=== PATIENT | male | born 1980 | race Caucasian/White ===

== ENCOUNTER 2018-02-13 09:37 | Emergency (ER) | payer OTHER ==
[~2018-02-13] VITALS: Ht 162.6 cm; Wt 81.6 kg
[~2018-02-13 09:37] MED LIST: PREVACID30 MG PO
== END 2018-02-13 13:43 | disposition home or self-care (01) ==
LOC: ER 09:37
DX: S90.111A Contusion of right great toe without damage to nail, initial encounter (principal); W22.8XXA Striking against or struck by other objects, initial encounter; Y93.89 Activity, other specified; Y92.098 Other place in other non-institutional residence as the place of occurrence of the external cause; Y99.8 Other external cause status

== ENCOUNTER 2023-11-26 05:10 | Day surgery (SDC) | payer OTHER ==
[2023-11-19 09:38] LABS: HEMATOCRIT 40.3 % (39.0-48.0); HEMOGLOBIN 13.9 g/dL (13-16.00); MEAN CELL VOLUME 86.6 fL (80.0-100.00); MEAN CORPUSCULAR HEMOGLOBIN 29.8 pg (27.00-32.0); MEAN CORPUSCULAR HGB CONC 34.4 g/dl (32.0-36.0); PLATELET COUNT 392 K/uL (150-450); RED BLOOD COUNT 4.66 M/uL (4.00-6.00); RED CELL DISTRIBUTION WIDTH 13.4 % (11.5-14.5)
[2023-11-19 09:38] LABS: PH,URINE 5.5 (5.0-8.0); URINE APPEARANCE Clear; URINE BILIRRUBIN Negative (NEGATIVE); URINE BLOOD Trace; URINE COLOR Yellow; URINE KETONE Trace (NEGATIVE); URINE LEUKOCYTE Negative; URINE NITRATE Negative; URINE PROTEIN Trace (NEGATIVE); URINE UROBILINOGEN 0.2 E.U./dl
[2023-11-19 09:41] LABS: URINE BACTERIA 11.3 uL (0.0-1933); URINE EPITHELIAL CELLS 2.6 uL (0.0-38.8); URINE RBC 10.9 uL (0.0-20.8); URINE WBC 2.3 uL (0.0-23.2)
[2023-11-19 09:58] LABS: URINE GLUCOSE 100 MG/DL (NEGATIVE)
[2023-11-19 10:02] VITALS: BP 140/90
[2023-11-19 10:19] LABS: INR 1.01; PARTIAL THROMBOPLASTIN TIME 30.6 SECONDS (22.0-34.0); PROTHROMBIN TIME 10.6 SECONDS (9.0-11.5)
[2023-11-19 10:24] LABS: BILIRUBIN TOTAL 0.36 mg/dL (0.3-1.2); CALCIUM 9.6 mg/dL (8.5-10.1); CREATININE SERUM 0.71 mg/dL (0.70-1.30); GFR 119.97; GLOBULINA 4.1 G/DL (2.4-3.5); POTASSIUM 4.57 mEq/L (3.5-5.1); TOTAL PROTEIN 8.1 gm/dL (6.4-8.2)
[~2023-11-26] VITALS: Ht 165.1 cm; Wt 94.3 kg
[~2023-11-26 05:10] MED LIST changes: +ATORVASTATIN CA40 MG PO; +LOSARTAN-HCTZ1 EACH PO; +TOPROL XL50 M1 PO
[2023-11-26] MEDS ORDERED: CEFAZOLIN SODIUM 1,000 MG VIAL IV ONE (09:30)
[2023-11-26] MEDS ORDERED: POVIDONE-IODINE 118 ML BOTT TOP ONE (09:30)
[2023-11-26] MEDS ORDERED: BACITRACIN 28.35 GM OINT.TUBE TOP ONE (09:30)
[2023-11-26] MEDS ORDERED: POVIDONE-IODINE SCRUB 118 ML BOTT TOP SCH (09:30)
[2023-11-26] MEDS ORDERED: NEOMYCIN/POLYMYXIN B/HYDROCORT 20 DR/ML BOTTLE OT ONE (09:30)
[2023-11-26] MEDS ORDERED: LIDOCAINE HCL 1%/EPINEPHRINE 20ML VIAL IJ ONE (09:30)
[2023-11-26] MEDS ORDERED: EPINEPHRINE HCL/PF 1 MG/ML AMPUL IR ONE (09:45)
[2023-11-26] MEDS ORDERED: SUGAMMADEX SODIUM 200 MG/2 ML VIAL IV ONE (10:15)
[2023-11-26] MEDS ORDERED: PROMETHAZINE HCL 25 MG/ML AMPUL IM PRN (10:15)
[2023-11-26] MEDS ORDERED: KETOROLAC TROMETHAMINE 60 MG VIAL IM PRN (10:15)
== END 2023-11-26 12:05 | disposition home or self-care (01) ==
LOC: O/R 05:10 → CIR.AMB 05:10
PROVIDERS: ATTEND Otolaryngology Otology & Neurotology
DX: H72.92 Unspecified perforation of tympanic membrane, left ear (principal); I10 Essential (primary) hypertension; E78.00 Pure hypercholesterolemia, unspecified